=== PATIENT | male | born 1970 | race Caucasian/White ===

== ENCOUNTER 2017-01-05 18:05 | Emergency (ER) | payer OTHER ==
[2017-01-05] MEDS ORDERED: Midazolam HCl 2 mg/2 ml Vial ONE ×2 (18:21→19:02)
--- NOTE | 2017-01-05 19:29 | RAD ---
LEFT SHOULDER THREE VIEWS: 01/05/17 HISTORY: Injury to shoulder. There is some old posttraumatic changes of the shoulder. There is what appears to be an old distal c lavicle fracture. An ossification in the region of the coracoclavicular ligament suggesting an old i njury. I do not see any signs of any definite acute fracture. IMPRESSION: No acute injury. POS: [facility]
[2017-01-05] MEDS ORDERED: Ketorolac Tromethamine 30 MG/ML VIAL ONE (19:45)
== END 2017-01-05 20:05 ==
LOC: NAV ERS 18:05
DX: S40.012A Contusion of left shoulder, initial encounter (principal); F31.9 Bipolar disorder, unspecified; Z79.899 Other long term (current) drug therapy; W22.8XXA Striking against or struck by other objects, initial encounter
CPT/HCPCS: 96374; 96375; 96376; J1885; J2250

== ENCOUNTER 2017-10-14 15:03 | Emergency (ER) | payer OTHER ==
[2017-10-14] MEDS ORDERED: HYDROcodone/Acetaminophen 10/325 mg Tablet ONE (15:24)
[2017-10-14] MEDS ORDERED: ALPRAZolam 0.25 MG TAB ONE (16:03)
[2017-10-14] MEDS ORDERED: Ketorolac Tromethamine 30 MG/ML VIAL ONE (17:00)
[2017-10-14] MEDS ORDERED: Ondansetron ODT 4 MG TAB ONE (17:06)
--- NOTE | 2017-10-14 17:44 | RAD ---
LEFT SHOULDER THREE VIEWS: 10/14/17 HISTORY: 47-year-old male with pain following trauma, fall out of a wheelchair. There is some minimal deformity at the AC joint which probably is related to some old trauma. No acut e fracture or dislocation. IMPRESSION: No acute fracture or dislocation. Stable appearance from 01/05/17. POS: [facility]
--- NOTE | 2017-10-14 20:06 | CT ---
THORACIC SPINE CT WITHOUT CONTRAST: 10/14/17 COMPARISON: None. HISTORY: Fall, trauma, pain. TECHNIQUE: Serial axial CT imaging at 5 mm intervals through the thoracic spine without contrast. Coronal and sa gittal reformatted imaging obtained. FINDINGS: The imaged lung parenchyma appears unremarkable. No displaced rib fracture is noted. Vertebral body height and alignment is grossly unremarkable with no evidence for an acute fracture of the thoracic spine. Multiple Schmorl's nodes are noted within the mid and lower thoracic spine. IMPRESSION: No acute fracture is seen involving the thoracic spine. POS: [facility]
--- NOTE | 2017-10-14 20:08 | CT ---
CT OF THE LUMBAR SPINE 10/14/17 COMPARISON: None. HISTORY: Trauma, fall, pain. TECHNIQUE: Serial axial CT imaging obtained at 2.5 mm intervals through the lumbar spine without contrast. Coron al and sagittal reformatted imaging obtained. FINDINGS: Evaluation for central canal and/or neural foraminal stenosis is limited on routine CT. The imaged no nosseous structures appear grossly unremarkable. There is no widening of the sacroiliac joints. There is no evidence for sacral fracture. There is mild sacroiliac joint degenerative change bilaterally. Lumbar vertebral body height and alignment appears within normal limits. There is no displaced fractu re or evidence of dislocation seen involving the lumbar spine. IMPRESSION: No evidence for fracture of the lumbar spine. POS: [facility]
--- NOTE | 2017-10-14 20:12 | CT ---
CT OF CERVICAL SPINE: 10/14/17 COMPARISON: None. HISTORY: Fall, trauma, pain. TECHNIQUE: Serial axial CT imaging at 2.5 mm intervals from the thoracic inlet through the skull base without co ntrast. Coronal and sagittal reformatted imaging obtained. FINDINGS: The imaged paranasal sinuses/mastoid air cells are grossly unremarkable. The C1 ring is intact. There is moderate degenerative change at the atlantoaxial interspace. The craniocervical junction, at lantoaxial interspace, and cervicothoracic junction demonstrate no acute findings. There is degenerative end plate change and disc space narrowing at C6-7. No prevertebral soft tissue swelling is noted. The imaged lung apices demonstrate subpleural cystic c hange on the right. No displaced fracture or evidence of dislocation is seen. IMPRESSION: No displaced fracture or evidence of dislocation involving the cervical spine. POS: [facility]
== END 2017-10-14 17:30 ==
LOC: NAV ERS 15:03
DX: S43.102A Unspecified dislocation of left acromioclavicular joint, initial encounter (principal); M54.6 Pain in thoracic spine; I10 Essential (primary) hypertension; F31.9 Bipolar disorder, unspecified; Z87.891 Personal history of nicotine dependence; Z79.899 Other long term (current) drug therapy; W05.0XXA Fall from non-moving wheelchair, initial encounter
CPT/HCPCS: 72125; 72128; 72131; 96372; J1885; Q0162

== ENCOUNTER 2018-02-17 00:23 | Emergency (ER) | payer OTHER ==
[2018-02-17] MEDS ORDERED: Acetaminophen/Codeine 30-300mg Tablet ONE (02:01)
--- NOTE | 2018-02-17 09:43 | RAD ---
THREE VIEWS LEFT SHOULDER: INDICATION: Left shoulder pain. COMPARISON: Prior exam dated 10/04/17. IMPRESSION: The elevation of the distal clavicle relation to the acromion is stable. Enthesopathic change off th e inferior aspect of the clavicle in the region of the coracoclavicular ligaments as well as the infe rior acromioclavicular ligament are stable. No acute fracture or subluxation is evident. IMPRESSION: 1. Stable remote traumatic injury involving the left acromioclavicular joint and coracoclavicular re gion. 2. No acute fracture or subluxation is demonstrated. POS: [facility]
== END 2018-02-17 02:13 ==
LOC: NAV ERS 00:23
DX: S43.52XA Sprain of left acromioclavicular joint, initial encounter (principal); I10 Essential (primary) hypertension; F31.9 Bipolar disorder, unspecified; Z87.891 Personal history of nicotine dependence; Z79.899 Other long term (current) drug therapy; W19.XXXA Unspecified fall, initial encounter